=== PATIENT | female | born 1940 | race African-American/Black ===

== ENCOUNTER 2017-10-17 13:06 | Day surgery (SDC) | payer OTHER ==
[2017-10-17] MEDS ORDERED: LIDOCAINE 1% (MDV) 20 ML INJ (13:45)
[2017-10-17] MEDS ORDERED: HEPARIN 1000 UNITS/ML 10 ML INJ (13:45)
[2017-10-17] MEDS ORDERED: VERAPAMIL 5 MG INJ (13:46)
[2017-10-17] MEDS ORDERED: NITROGLYCERIN (IC) 100 MCG/ML INJ (13:46)
[2017-10-17] MEDS ORDERED: FENTAnyl 50 MCG/ML VIAL (14:47)
[2017-10-17] MEDS ORDERED: MIDAZOLAM 1 MG/ML 2 ML INJ (14:47)
[2017-10-17] MEDS ORDERED: SOD CHLORIDE 0.9% 1,000 ML IV (15:15)
[2017-10-17] MEDS ORDERED: ONDANSETRON 4 MG INJ IV (15:30)
[2017-10-17] MEDS ORDERED: ACETAMINOPHEN 325 MG TAB PO (15:30)
[2017-10-17] MEDS ORDERED: morphine 2 MG INJ IV (15:30)
== END 2017-10-17 19:00 | disposition short-term general hospital (02) ==
LOC: CCL 13:06 → SDS 13:06 → CCL 19:00
DX: I21.4 Non-ST elevation (NSTEMI) myocardial infarction (principal)
CPT/HCPCS: 93458